=== PATIENT | female | born 1995 | race Caucasian/White ===

== ENCOUNTER 2020-05-14 20:30 | Emergency (ER) | payer OTHER, SELFPAY ==
[2020-05-14 20:43] VITALS: BP 123/80; PULSE 86; RESP 20; TEMP 37.2; O2SAT 100; BMI 22.6
[2020-05-14 20:48] LABS: Apearance,Urine Cloudy (Clear); Color,Urine Straw (Yellow); PH,Urine 5.5 (5.0-8.5); Specific Gravity, Urine >= 1.030 (1.005-1.030)
--- NOTE | 2020-05-14 20:48 | HMH.EDUTC ---
[facility] [place] Clinical Impression: UTI (urinary tract infection) Qualifiers: Urinary tract infection type: site unspecified Hematuria presence: with hematuria Qualified Code(s): N39.0 - Urinary tract infection, site not specified; R31.9 - Hematuria, unspecified Disposition: Home, Self-Care Condition on Discharge: Good Instructions: Urinary Tract Infection, DI for Urinary Tract Infection (UTI) Additional Instructions: Drink plenty of fluids. Take tylenol or ibuprofen for pain or fever. Take the medications as directed. Follow up with your regular doctor. GO TO THE ER FOR ANY WORSENING SYMPTOMS The pyridium will make your urine turn orange, this is an expected side effect. It will stain your clothes if it comes into contact with them. Prescriptions: Ondansetron [Zofran 4mg ODT] 4 mg PO Q8HP PRN #10 tab.rapdis PRN Reason: Nausea Transmission Status: Pending to Clinic Pharmacy [facility] Ciprofloxacin HCl [Cipro 500mg Tab] 500 mg PO BID 7 Days #14 tab Transmission Status: Pending to Clinic [facility] Phenazopyridine HCl [Pyridium 200mg Tablet] 200 pow PO TID #6 tab Transmission Status: Pending to Clinic Pharm[facility] Referrals: PCP,No [Primary Care Provider] - Time of Disposition: 20:59 Medical Decision Making - Medical Records Medical records reviewed: No: I reviewed the patient's medical records. - Primo Inquiry Pt receiving controlled substance: No Vital Signs: 05/14/20 20:43 Temperature 99.0 F Temperature Source Oral Pulse Rate [Right Brachial] 86 Respiratory Rate 20 Blood Pressure [Right Arm] 123/80 Blood Pressure Mean [Right Arm] 94 Blood Pressure Source [Right Arm] Automatic Cuff Blood Pressure Position [Right Arm] Sitting 02 Sat by Pulse Oximetry 100 Oxygen Delivery Method Room Air - Lab Data Lab results reviewed: Yes: I reviewed the patient's lab results. Orders (Tests/Meds): ORDERS Category Date Time Status Urine Culture Stat Micro 05/14/20 20:40 Ordered [facility] [place] HPI - General Stated complaint: Possible UTI Time Seen by Provider: 05/14/20 20:49 Mode of Arrival: Ambulatory Source of Information: Patient Limitations: No Limitations Description of Symptoms (Recalled from Triage Doc. by RN): PATIENT C/O BURNING WITH URINATION AND CLOUDY URINE THAT STARTED TODAY HEENT Symptoms (Recalled from RN notes): No Resp Symptoms (Recalled from RN notes): No Skin Symptoms (Recalled from RN notes): No MS Symptoms (Recalled from RN notes): No Functional Status (Recalled from RN notes): WNL - History of Present Illness Provider Complaint: She c/o burning while urinating and low back pain since earlier today. She has a history of having kind of frequent uti's. She is currently on her period. - Related Data Previous Rx's Medication Instructions Recorded Ciprofloxacin HCl [Cipro 500mg 500 mg PO BID 7 Days #14 tab 05/14/20 Tab] Ondansetron [Zofran 4mg ODT] 4 mg PO Q8HP PRN #10 tab.rapdis 05/14/20 Phenazopyridine HCl [Pyridium 200 pow PO TID #6 tab 05/14/20 200mg Tablet] Allergies Allergy/AdvReac Type Severity Reaction Status Date / Time Sulfa (Sulfonamide Allergy Verified 05/14/20 20:47 Antibiotics) - Worker's Comp Is this a Worker's Comp case?: No [facility] History - Hepatitis A Screen Drug use history?: No High risk sexual behaviors?: No History of sexually transmitted infection?: No Currently employed?: No Childcare worker?: No Do you have indoor plumbing?: Yes Do you have electricity?: Yes Attestation statement:: This patient has been screened for Hepatitis A risk factors. I have reviewed the patient's past medical history: Yes - Social History Alcohol Intake: never Occupational Status: other ROS Obtained: Yes All systems reviewed & no additional complaints - Constitutional Constitutional: Reports chills, Denies fever(s), Reports poor appetite, Reports malaise - Eyes Eyes: Denies eye discharge - ENT E
[2020-05-14 20:49] LABS: Bilirubin,Urine Negative (Negative); Blood, Urine 3+ (Negative); Glucose,Urine (UA) Negative (Negative); Ketones,Urine Negative (Negative); Protein,Urine 3+ (Negative); Urobilinogen,Urine 0.2 EU/dl (0.2)
[2020-05-14 20:50] LABS: UTC Leukocyte Esterase,Urine Trace (Negative); UTC Nitrate,Urine Negative (Negative)
[2020-05-14 21:03] VITALS: BP 123/80; PULSE 86; RESP 20; TEMP 37.2; O2SAT 100
== END 2020-05-14 21:05 | disposition home or self-care (01) ==
PROVIDERS: Emergency Provider Nurse Practitioner Family
DX: N30.01 Acute cystitis with hematuria (principal); Z88.2 Allergy status to sulfonamides
CPT/HCPCS: 81003; 87086; 87088; 87186; 99201

== ENCOUNTER 2020-11-22 18:02 | Emergency (ER) | payer OTHER, SELFPAY ==
[2020-11-22 18:24] LABS: Apearance,Urine Clear (Clear); Color,Urine Yellow (Yellow); Glucose,Urine (UA) Negative (Negative); Ketones,Urine Negative (Negative); PH,Urine 7.5 (5.0-8.5); Protein,Urine 2+ (Negative)
[2020-11-22 18:25] LABS: Bilirubin,Urine Negative (Negative); Blood, Urine 2+ (Negative); UTC Leukocyte Esterase,Urine 2+ (Negative); UTC Nitrate,Urine Positive (Negative); Urobilinogen,Urine 2 EU/dl (0.2)
[2020-11-22 18:32] VITALS: BP 117/82; PULSE 55; RESP 14; TEMP 37.1; O2SAT 99; BMI 20.3
--- NOTE | 2020-11-22 18:36 | HMH.EDUTC ---
[facility] [place] Clinical Impression: UTI (urinary tract infection) Qualifiers: Urinary tract infection type: site unspecified Hematuria presence: with hematuria Qualified Code(s): N39.0 - Urinary tract infection, site not specified Disposition: Home, Self-Care Condition on Discharge: Good Instructions: Urinary Tract Infection Additional Instructions: Drink plenty of fluids. Take tylenol or ibuprofen for pain or fever. Take the medications as directed. Follow up with your regular doctor. GO TO THE ER FOR ANY WORSENING SYMPTOMS The pyridium will make your urine turn orange, this is an expected side effect. It will stain your clothes if it comes into contact with them. Prescriptions: Ciprofloxacin HCl [Cipro 500mg Tab] 500 mg PO BID #14 tab Transmission Status: Received by [facility] #[id number] Fluconazole [Diflucan 150mg tab] 150 mg PO ONCE #1 tab Transmission Status: Received by [facility] #[id number] Phenazopyridine HCl [Pyridium 200mg Tablet] 200 pow PO TID #6 tab Transmission Status: Received by [facility] #[id number] Referrals: PCP,No [Primary Care Provider] - Forms: Work/School Release Time of Disposition: 18:44 Medical Decision Making - Medical Records Medical records reviewed: No: I reviewed the patient's medical records. - Primo Inquiry Pt receiving controlled substance: No Vital Signs: 11/22/20 18:32 11/22/20 19:11 Temperature 98.7 F 98 F Temperature Source Tympanic Pulse Rate 0 L Pulse Rate [Right] 55 L Respiratory Rate 14 17 Blood Pressure 000/00 L Blood Pressure [Right Arm] 117/82 Blood Pressure Mean [Right Arm] 93 Blood Pressure Source [Right Arm] Automatic Cuff Blood Pressure Position [Right Arm] Sitting 02 Sat by Pulse Oximetry 99 - Lab Data Lab results reviewed: Yes: I reviewed the patient's lab results. Lab Results 11/22/20 18:11: Urine Color Yellow, Urine Appearance Clear, Urine pH 7.5, Ur Specific [place] 1.020, Urine Protein 2+, Urine Glucose (UA) Negative, Urine Ketones Negative, Urine Blood 2+, Urine Nitrate Positive A, Urine Bilirubin Negative, Urine Urobilinogen 2, Ur Leukocyte Esterase 2+ A Orders (Tests/Meds): ED MEDICATIONS Discontinued Medications Generic Name Dose Route Start Last Admin Trade Name Nasim PRN Reason Stop Dose Admin Levofloxacin 500 mg 11/22/20 18:42 11/22/20 18:53 Levofloxacin 500mg Tab PO 11/22/20 18:43 500 mg ONCE ONE Administration Protocol ORDERS Category Date Time Status Urine Culture Routine Micro 11/22/20 18:15 Received [facility] [place] - General Stated complaint: UTI Time Seen by Provider: 11/22/20 18:36 Mode of Arrival: Ambulatory Source of Information: Patient Limitations: No Limitations Description of Symptoms (Recalled from Triage Doc. by RN): She states that she has had dysuria and low back pain since yesterday. HEENT Symptoms (Recalled from RN notes): No Resp Symptoms (Recalled from RN notes): No Skin Symptoms (Recalled from RN notes): No MS Symptoms (Recalled from RN notes): Yes (R elbow/forearm pain) Functional Status (Recalled from RN notes): na - History of Present Illness Provider Complaint: She states that she has had dysuria and low back pain since yesterday. - Related Data Previous Rx's Medication Instructions Recorded Ciprofloxacin HCl [Cipro 500mg 500 mg PO BID 7 Days #14 tab 05/14/20 Tab] Ondansetron [Zofran 4mg ODT] 4 mg PO Q8HP PRN #10 tab.rapdis 05/14/20 Phenazopyridine HCl [Pyridium 200 pow PO TID #6 tab 05/14/20 200mg Tablet] Ciprofloxacin HCl [Cipro 500mg 500 mg PO BID #14 tab 11/22/20 Tab] Fluconazole [Diflucan 150mg tab] 150 mg PO ONCE #1 tab 11/22/20 Phenazopyridine HCl [Pyridium 200 pow PO TID #6 tab 11/22/20 200mg Tablet] Allergies Allergy/AdvReac Type Severity Reaction Status Date / Time Sulfa (Sulfonamide Allergy Verified 11/22/20 19:11 Antibiotics) -
[2020-11-22 19:11] VITALS: BP 000/00; PULSE 0; RESP 17; TEMP 36.6
== END 2020-11-22 19:11 | disposition home or self-care (01) ==
PROVIDERS: Emergency Provider Nurse Practitioner Family
DX: N30.00 Acute cystitis without hematuria (principal)
CPT/HCPCS: 81003; 87086; 87088; 87186; 99202; G0463

== ENCOUNTER 2021-02-26 15:21 | Emergency (ER) | payer OTHER, SELFPAY ==
[2021-02-26 15:35] VITALS: BP 107/73; PULSE 89; RESP 19; TEMP 37; O2SAT 98; BMI 22.8
[2021-02-26 15:50] LABS: UTC Pregnancy Test, Urine Negative (Negative)
--- NOTE | 2021-02-26 16:16 | HMH.EDUTC ---
[facility] [place] Disposition Clinical Impression: Nausea vomiting and diarrhea Disposition: Home, Self-Care Condition on Discharge: Good Instructions: Diarrhea, Nausea and Vomiting-Adult, Ondansetron Additional Instructions: Drink extra fluids with and between meals. If you have difficulty drinking, try very small amounts of water or suck on ice chips. ? Avoid fruit juices, as these do not replace minerals and can actually increase diarrhea. ? Children and adults can use sports drinks to replenish electrolytes. Younger children and infants should use products formulated for children, like oral rehydration solutions. ? Eat food in small amounts and let your stomach recover. ? Get lots of rest. You may feel tired or weak. ? No greasy or fried foods for the next 24-48 hours BRAT diet Bananas Rice Apples and [place] ? Make sure to drink plenty of liquids ? Return if needed ? Straight to ER if any life threatening symptoms ? Zofran as prescribed ? You was given an outpatient order for diarrhea panel, please collect specimen and bring back to outpatient lab then call back to the [facility] or follow up with family doctor for results ? Follow up with family doctor in the next 48-72 hours if no improvement or any worsening of symptoms Prescriptions: Ondansetron [Zofran 4mg ODT] 4 mg PO TIDP PRN #10 tab PRN Reason: Nausea Transmission Status: Received by [facility] #[id number] Referrals: Provider,Referral, MD [Primary Care Provider] - As needed Forms: Work/School Release Time of Disposition: 16:40 Medical Decision Making - Primo Inquiry Pt receiving controlled substance: No Primo was queried for this patient: No Vital Signs: 02/26/21 15:35 02/26/21 16:46 Temperature 98.6 F 98.6 F Temperature Source Oral Pulse Rate 89 Pulse Rate [Right Brachial] 89 Respiratory Rate 19 19 Blood Pressure 107/73 L Blood Pressure [Right Arm] 107/73 L Blood Pressure Mean [Right Arm] 84 Blood Pressure Source [Right Arm] Automatic Cuff Blood Pressure Position [Right Arm] Sitting 02 Sat by Pulse Oximetry 98 Oxygen Delivery Method Room Air - Lab Data Lab results reviewed: Yes: I reviewed the patient's lab results. Lab Results 02/26/21 15:38: Tst Clinic Negative Orders (Tests/Meds): ED MEDICATIONS Discontinued Medications Generic Name Dose Route Start Last Admin Trade Name Freq PRN Reason Stop Dose Admin Ondansetron HCl 4 mg 02/26/21 16:24 02/26/21 16:29 Ondansetron 4mg Odt SL 02/26/21 16:25 4 mg ONCE ONE Administration [facility] [place] HPI - General Stated complaint: V/D nausea Time Seen by Provider: 02/26/21 16:22 Mode of Arrival: Ambulatory Source of Information: Patient Limitations: No Limitations Description of Symptoms (Recalled from Triage Doc. by RN): PATIENT C/O VOMITING, DIARRHEA, AND NAUSEA SINCE SATURDAY HEENT Symptoms (Recalled from RN notes): No Resp Symptoms (Recalled from RN notes): No Skin Symptoms (Recalled from RN notes): No MS Symptoms (Recalled from RN notes): No Functional Status (Recalled from RN notes): WNL - History of Present Illness Provider Complaint: Patient state that she started having nausea and vomiting on State that she has continued to have it throughout the weekend States that she has been drinking ok but not been eating well States that her stomach feels tore up States that when she tries to eat something it makes her sick and she vomits - Related Data Previous Rx's Medication Instructions Recorded Ondansetron [Zofran 4mg ODT] 4 mg PO TIDP PRN #10 tab 02/26/21 Allergies Allergy/AdvReac Type Severity Reaction Status Date / Time Sulfa (Sulfonamide Allergy Verified 11/22/20 19:11 Antibiotics) - Worker's Comp Is this a Worker's Comp case?: No [facility] History - Hepatitis A Screen Drug use history?: No High risk sexual behaviors?: No History of sexually transmitted infection?: No Currently employed?: No Childcare worker?: No
[2021-02-26 16:46] VITALS: BP 107/73; PULSE 89; RESP 19; TEMP 37; O2SAT 98
== END 2021-02-26 16:51 | disposition home or self-care (01) ==
PROVIDERS: Emergency Provider Nurse Practitioner
DX: R11.2 Nausea with vomiting, unspecified (principal); R19.7 Diarrhea, unspecified
CPT/HCPCS: 81025; 99202; G0463

== ENCOUNTER → 2021-02-26 21:52 | Outpatient (CLI) | payer OTHER, SELFPAY ==
[2021-02-26 22:08] LABS: Adenovirus F 40/41, stool Not Detected (NotDetected); Astrovirus Not Detected (NotDetected); Campylobacter Not Detected (NotDetected); Clostridium Difficile A/B, PCR Not Detected (NotDetected); Cryptosporidium Not Detected (NotDetected); Cyclospora Cayetanesis Not Detected (NotDetected); Entamoeba histolytica Not Detected (NotDetected); Enteroaggregative E coli Not Detected (NotDetected); Enteropathogenic E coli Not Detected (NotDetected); Enterotoxigenic E coli Not Detected (NotDetected); Giardia lamblia Not Detected (NotDetected); Norovirus Not Detected (NotDetected); Plesimonas Shigalloides, PCR Not Detected (NotDetected); Rotavirus A Not Detected (NotDetected); Salmonella, PCR Not Detected (NotDetected); Shiga-like toxin E coli Not Detected (NotDetected); Shigella Enterovasive E coli Not Detected (NotDetected); Vibrio Cholerae Not Detected (NotDetected); Vibrio, PCR Not Detected (NotDetected); Yersinia Entercolitica, PCR Not Detected (NotDetected)
[2021-02-26 23:43] LABS: Sapovirus Detected (NotDetected)
== END ==
PROVIDERS: Visit Provider Nurse Practitioner
DX: R19.7 Diarrhea, unspecified (principal); A08.4 Viral intestinal infection, unspecified
CPT/HCPCS: 87507

== ENCOUNTER → 2021-05-05 14:12 | Outpatient (CLI) | payer OTHER, SELFPAY ==
[2021-05-05 14:42] LABS: Coronavirus 19, PCR Not Detected (NotDetected); Influenza A, PCR Not Detected (NotDetected); Influenza B, PCR Not Detected (NotDetected)
== END ==
PROVIDERS: Visit Provider Nurse Practitioner Family
DX: Z20.822 Contact with and (suspected) exposure to COVID-19 (principal); R50.9 Fever, unspecified
CPT/HCPCS: U0003

== ENCOUNTER → 2021-05-09 14:38 | Outpatient (CLI) | payer OTHER, SELFPAY | PROVIDERS: Visit Provider Nurse Practitioner Family | DX: Z20.822 Contact with and (suspected) exposure to COVID-19 (principal); U07.1 COVID-19 | CPT/HCPCS: U0003 ==

== ENCOUNTER → 2021-08-01 16:48 | Outpatient (CLI) | payer OTHER, SELFPAY | PROVIDERS: Visit Provider Nurse Practitioner Family | DX: R30.0 Dysuria (principal); B96.20 Unspecified Escherichia coli [E. coli] as the cause of diseases classified elsewhere | CPT/HCPCS: 87086; 87088; 87186 ==

== ENCOUNTER → 2022-02-20 12:45 | Outpatient (POV) | payer OTHER, SELFPAY | PROVIDERS: Visit Provider Dermatology | DX: Z00.00 Encounter for general adult medical examination without abnormal findings (principal) ==

== ENCOUNTER → 2022-03-07 10:50 | Outpatient (CLI) | payer OTHER, SELFPAY ==
[2022-03-07 11:23] LABS: Basophils # 0.1 K/mm3 (0-0.2); Basophils % 1.3 % (0.1-2.0); Eosinophils # 0.1 K/mm3 (0.0-0.4); Hematocrit 43.5 % (37.0-47.0); Lymphocytes # 1.1 K/mm3 (0.7-4.5); Lymphocytes % 19.5 % (10-50); Mean Corpuscular Hemoglobin 27.6 pg (27.0-31.2); Mean Corpuscular Volume 92.3 fl (81-99); Mean Platelet Volume 7.2 fl (7.4-10.4); Monocytes # 0.2 K/mm3 (0.1-1.0); Monocytes % 3.8 % (1.7-9.3); Neutrophils # 4.3 K/mm3 (1.8-7.8); Neutrophils % 74.4 % (37.0-80.0); Platelet Count 260 K/mm3 (142-424); Red Blood Count 4.72 M/mm3 (4.20-5.40); Red Cell Distribution Width 12.8 % (11.5-17.5); White Blood Count 5.8 K/mm3 (4.8-10.8)
[2022-03-08 08:19] LABS: HIV Screen 4th Generation wRfx Non Reactive (Non Reactive); Hepatitis B Surface Antigen Negative (Negative); Hepatitis C Antibody <0.1 s/co ratio (0.0-0.9); Rubella Antibodies, IgG 6.42 index (Immune >0.99)
[2022-03-08 11:56] LABS: Rapid Plasma Reagin Ab Titer Non Reactive (NonRea<1:1)
== END ==
PROVIDERS: PCP Nurse Practitioner Family; Visit Provider Obstetrics & Gynecology
DX: Z34.90 Encounter for supervision of normal pregnancy, unspecified, unspecified trimester (principal)
CPT/HCPCS: 36415; 85025; 86592; 86703; 86762; 86850; 87340; 87380; G0432

== ENCOUNTER → 2022-06-06 12:57 | Outpatient (CLI) | payer OTHER, SELFPAY ==
--- NOTE | 2022-06-06 12:57 | US_ITS ---
FINAL REPORT CLINICAL HISTORY: 20 week anatomy scan FINDINGS: There is a single live intrauterine gestation. Presentation is cephalic. The cervix is closed and measures 0.7 cm. Placenta is anterior, grade 1. movement is noted. Rate is detected at 156 beats per minute. Three-vessel cord with satisfactory umbilical cord insertion. Four-chamber heart is noted. ABDOMEN: Both kidneys are unremarkable. Stomach is unremarkable. SPINE: No anomalies identified. AMNIOTIC FLUID: Appropriate amount. MEASUREMENTS: ULTRASOUND AGE: 20 weeks 4 days. GESTATION AGE: 20 weeks 4 days. ESTIMATED WEIGHT: 353 g GROWTH PERCENTILE: 37 % BPD: 5.02 cm corresponding to 21 weeks 2 days. OFD: 6.23 cm corresponding to 21 weeks 0 days. HC: 17.77 cm corresponding to 20 weeks 2 days. AC: 14.73 cm corresponding to 20 weeks 1 day. FL: 3.46 cm corresponding to 21 weeks 0 days. CEREBELLUM: 2.08 cm corresponding to 21 weeks 1 day. HUMERUS: 2.35 cm corresponding to 21 weeks 3 days. HC/AC: 1.21 CI: 81% FL/BPD: 69% FL/AC: 23% IMPRESSION: Single living IUP with an ultrasound age of 20 weeks 5 days. Reviewed, Interpreted and Dictated by Himanshu Thakkar III, MD Transcribed by Collette Brunson Authenticated and [facility]
== END ==
PROVIDERS: PCP Nurse Practitioner Family; Visit Provider Obstetrics & Gynecology
DX: Z34.90 Encounter for supervision of normal pregnancy, unspecified, unspecified trimester (principal); Z3A.20 20 weeks gestation of pregnancy
CPT/HCPCS: 76811

== ENCOUNTER → 2022-07-11 09:07 | Outpatient (CLI) | payer OTHER, SELFPAY ==
[2022-07-11 09:45] LABS: Glucose,Fasting 75 mg/dl (74-100)
[2022-07-11 09:52] LABS: Basophils % 0.6 % (0.1-2.0); Eosinophils # 0.1 K/mm3 (0.0-0.4); Eosinophils % 0.9 % (0.1-12.0); Hematocrit 38.6 % (37.0-47.0); Hemoglobin 12.5 g/dL (12.2-16.2); Lymphocytes # 1.4 K/mm3 (0.7-4.5); Lymphocytes % 23.1 % (10-50); Mean Corpuscular HGB Conc 32.3 g/dL (31.8-35.4); Mean Corpuscular Hemoglobin 29.6 pg (27.0-31.2); Mean Corpuscular Volume 91.5 fl (81-99); Mean Platelet Volume 7.4 fl (7.4-10.4); Monocytes # 0.2 K/mm3 (0.1-1.0); Monocytes % 3.4 % (1.7-9.3); Neutrophils # 4.4 K/mm3 (1.8-7.8); Neutrophils % 71.9 % (37.0-80.0); Platelet Count 271 K/mm3 (142-424); Red Blood Count 4.21 M/mm3 (4.20-5.40); Red Cell Distribution Width 13.2 % (11.5-17.5); White Blood Count 6.1 K/mm3 (4.8-10.8)
[2022-07-11 11:28] LABS: Glucose 1 Hour 114 mg/dL (74-100)
== END ==
PROVIDERS: PCP Nurse Practitioner Family; Visit Provider Obstetrics & Gynecology
DX: Z34.90 Encounter for supervision of normal pregnancy, unspecified, unspecified trimester (principal)
CPT/HCPCS: 36415; 82951; 85025

== ENCOUNTER 2022-09-24 13:15 | Outpatient (CLI) | payer OTHER, SELFPAY ==
[2022-09-24 13:23] VITALS: BMI 34.2
[2022-09-24 13:49] LABS: Microscopic, Urine URINE MICROSCOPIC (MICROSCOPIC)
[2022-09-24 13:52] LABS: Appearance,Urine CLEAR (Clear); Bilirubin,Urine Negative (Negative); Blood, Urine Negative (Negative); Color,Urine YELLOW (Yellow); Glucose,Urine (UA) Negative (Negative); Ketones,Urine TRACE (Negative); Leukocyte Esterase,Urine Negative (Negative); Nitrate,Urine Negative (Negative); Protein,Urine TRACE (Negative); Specific Gravity, Urine 1.025 (1.005-1.030); Urobilinogen,Urine 0.2 EU/dl (0.2)
[2022-09-24 13:54] VITALS: BP 144/92; PULSE 100; RESP 17; TEMP 37.1; O2SAT 100; BMI 34.2
[2022-09-24 14:02] LABS: Fetal Membrane Rupture (Rapid) Negative (Negative)
[2022-09-24 14:04] LABS: Benzodiazepines Screen,Urine Negative ng/ml (<200)
[2022-09-24 14:05] LABS: Amphetamine/Metha Screen,Urine Negative ng/ml (<1000); Bacteria,Urine 2+ /lpf; WBC,Urine Occasional #/hpf (0-3)
[2022-09-24 14:06] LABS: Cocaine Screen,Urine Negative ng/ml (<300)
[2022-09-24 14:07] LABS: Cannabinoid Screen,Urine Negative ng/ml (<50); Methadone Screen,Urine Negative ng/ml (<300)
[2022-09-24 14:08] LABS: Opiate Screen,Urine Negative ng/ml (<300); Phencyclidine Screen,Urine Negative ng/ml (<25)
[2022-09-24 14:16] LABS: Barbiturates Screen,Urine Negative ng/ml (<200)
== END 2022-09-24 14:15 | disposition home or self-care (01) ==
LOC: OBOUT 13:17 → OB 13:17
PROVIDERS: PCP Nurse Practitioner Family; Visit Provider Obstetrics & Gynecology
DX: O26.893 Other specified pregnancy related conditions, third trimester (principal); Z3A.36 36 weeks gestation of pregnancy
CPT/HCPCS: 59025; 80305; 81001; 84112; 87086; G0463

== ENCOUNTER 2022-09-27 16:21 | Outpatient (CLI) | payer OTHER, SELFPAY ==
[2022-09-27 16:31] VITALS: BMI 34.5
--- NOTE | 2022-09-27 16:32 | US_ITS ---
PROCEDURE INFORMATION: Exam: US Biophysical Profile Without Non-Stress Test Exam date and time: 09/27/2022 5:13 PM Age: 27 years old Clinical indication: status abnormalities: ; Abnormal heart rate; Single gestation; Third trimester (=28 weeks 0 days); ; Patient HX: tachycardia; Additional info: High heart rate TECHNIQUE: Imaging protocol: US biophysical profile without non-stress testing. COMPARISON: US OB /MATERNAL DETAIL 06/06/2022 1:02 PM FINDINGS: BIOPHYSICAL PROFILE: breathing movement (BPP): 2 out of 2. body movement (BPP): 2 out of 2. tone (BPP): 2 out of 2. Amniotic fluid (BPP): 2 out of 2. IMPRESSION: Biophysical profile score is 8 out of 8.
[2022-09-27 16:37] VITALS: BP 120/75; PULSE 97; RESP 20; TEMP 36.9; O2SAT 99; BMI 34.2
== END 2022-09-27 18:00 | disposition home or self-care (01) ==
LOC: OBOUT 16:22 → OB 16:24
PROVIDERS: PCP Physician Assistant; Visit Provider Obstetrics & Gynecology
DX: O26.893 Other specified pregnancy related conditions, third trimester (principal); Z3A.36 36 weeks gestation of pregnancy
CPT/HCPCS: 59025; 76811; 76819; 76820; 96365; G0463

== ENCOUNTER → 2022-09-27 17:24 | Outpatient (CLI) | payer OTHER, SELFPAY | PROVIDERS: Visit Provider Obstetrics & Gynecology | DX: Z34.90 Encounter for supervision of normal pregnancy, unspecified, unspecified trimester (principal) | CPT/HCPCS: 86403 ==

== ENCOUNTER 2022-10-17 16:15 | Inpatient (IN) | payer OTHER, SELFPAY ==
[2022-10-17 16:25] VITALS: BMI 35.0
--- NOTE | 2022-10-17 16:56 | EXP.OB.APHP ---
OB - H&P: HPI Antepartum History of Present Illness Chief complaint: Elective induction of labor History of present illness: Mrs Gale Mcclain is a 27 yo at 39 weeks 4 days who presents to [facility] for scheduled elective induction of labor. She admits to pelvic pressure and back pain. Baby is very active. Denies leakage of fluid and vaginal bleeding. No headaches, vision changes or swelling. History of Present Criteria for establishing EDC:: based on 1st trimester US only care: good care Ultrasounds: normal mid trimester US Obstetrical complications: none Medical complications: none Labs Blood type: O (+) positive Rubella: immune RPR/VDRL: nonreactive GBS status: negative HBsAG: negative PFSH PFS Disclaimer: The information contained in this section may have been updated after the patient was seen, as this information can be updated by other users. Medical History (Updated 10/17/22 @ 17:08 by Eli Nuñez DO) with 39 completed weeks gestation Surgical History History of colonoscopy History of tonsillectomy Family History Other Anemia Cancer Coronary artery disease Heart attack Hyperlipidemia Hypertension Thyroid disorder Social History Smoking Status: Never smoker alcohol intake: never current occupational status: employed Travel in the last 8 weeks: None Review of Systems Review of Systems Review of systems:: pertinent systems reviewed and negative unless documented below *Genitourinary Comments: + pelvic pressure *Musculoskeletal Musculoskeletal: Reports back pain Meds Home Medications and Allergies Home Medications Medication Instructions Recorded Confirmed Type prenat.vits,ryan,zar-lvwn-rhwmr 1 tab PO DAILY 03/07/22 10/17/22 History ondansetron 4 mg disintegrating 4 mg PO Q8H PRN nausea and 04/04/22 10/17/22 Rx tablet vomiting #20 tabs doxylamine succinate 25 mg tablet 12.5 mg PO HS #30 tabs 09/27/22 10/17/22 Rx (Unisom (doxylamine)) pantoprazole 40 mg tablet,delayed 40 mg PO DAILY #30 tabs 01/26/23 02/15/23 Rx release (Protonix) New Prescriptions to Start Prescriptions: Allergies Allergy/AdvReac Type Severity Reaction Status Date / Time Sulfa (Sulfonamide Allergy Verified 10/17/22 09:19 Antibiotics) OB - H&P: Exam Constitutional no acute distress and cooperative Routine HEENT Exam Head: Present normocephalic and atraumatic Eye: Absent conjunctivae pink ENT: Present mucous membranes moist and dentition normal Routine Neck Exam Present full ROM Routine Respiratory Exam Present CTA bilaterally and normal respiratory effort Routine Cardiovascular Exam Present RRR Routine Abdominal Exam Present soft (gravid); Absent tenderness Routine Rectal Exam Patient deferred: visual exam Routine Exam Patient deferred: external exam Routine Extremities Exam Present edema (+3 bilateral lower extremity edema); Absent calf tenderness Routine Neurological Exam Present alert, oriented X3 and moving all extremities Routine Psychiatric Exam Present normal affect and cooperative Detailed Labor and Delivery Exam Dilation (cm): 1 Effacement (%): 60 Cervix position: posterior station: -2 Consistency: soft Membranes: intact Baseline heart rate: 135 monitor accelerations: Present monitor decelerations: None salvage determiner variability: Moderate (11-25) OB - A/P Antepartum (1) with 39 completed weeks gestation: Status: Acute (2) GERD (gastroesophageal reflux disease): Status: Chronic Additional Plan Planning to breastfeed?: Yes Additional Information:: Admit to L&D for elective induction of labor Cytotec 50 mcg q 6 hours x 2 doses followed by Pitocin for induction GBS negative Close monitoring
[2022-10-17 17:35] VITALS: BP 124/77; RESP 18; TEMP 37.1; O2SAT 100; BMI 35.1
[2022-10-17 17:53] LABS: Basophils % 0.4 % (0.1-2.0); Eosinophils # 0.1 K/mm3 (0.0-0.4); Eosinophils % 0.8 % (0.1-12.0); Hemoglobin 10.9 g/dL (12.2-16.2); Lymphocytes # 1.6 K/mm3 (0.7-4.5); Lymphocytes % 16.1 % (10-50); Mean Corpuscular HGB Conc 32.9 g/dL (31.8-35.4); Mean Corpuscular Volume 85.1 fl (81-99); Mean Platelet Volume 8.4 fl (7.4-10.4); Monocytes # 0.5 K/mm3 (0.1-1.0); Monocytes % 4.7 % (1.7-9.3); Neutrophils # 7.9 K/mm3 (1.8-7.8); Neutrophils % 77.9 % (37.0-80.0); Platelet Count 328 K/mm3 (142-424); Red Blood Count 3.88 M/mm3 (4.20-5.40); Red Cell Distribution Width 13.9 % (11.5-17.5); White Blood Count 10.1 K/mm3 (4.8-10.8)
[2022-10-17 17:55] LABS: Microscopic, Urine URINE MICROSCOPIC (MICROSCOPIC)
[2022-10-17 17:57] LABS: Appearance,Urine CLEAR (Clear); Bilirubin,Urine Negative (Negative); Blood, Urine Negative (Negative); Color,Urine YELLOW (Yellow); Glucose,Urine (UA) Negative (Negative); Ketones,Urine TRACE (Negative); Leukocyte Esterase,Urine 1+ (Negative); Nitrate,Urine Negative (Negative); Protein,Urine Negative (Negative); Urobilinogen,Urine 0.2 EU/dl (0.2)
[2022-10-17 18:10] LABS: Barbiturates Screen,Urine Negative ng/ml (<200); Benzodiazepines Screen,Urine Negative ng/ml (<200)
[2022-10-17 18:11] LABS: Amphetamine/Metha Screen,Urine Negative ng/ml (<1000)
[2022-10-17 18:12] LABS: Cannabinoid Screen,Urine Negative ng/ml (<50); Methadone Screen,Urine Negative ng/ml (<300)
[2022-10-17 18:13] LABS: Cocaine Screen,Urine Negative ng/ml (<300); Opiate Screen,Urine Negative ng/ml (<300)
[2022-10-17 18:14] LABS: Bacteria,Urine 1+ /lpf; Phencyclidine Screen,Urine Negative ng/ml (<25)
[2022-10-17 18:50] LABS: Coronavirus 19, PCR Not Detected (NotDetected); Influenza A, PCR Not Detected (NotDetected); Influenza B, PCR Not Detected (NotDetected)
--- NOTE | 2022-10-18 07:13 | EXP.LABOR.NO ---
Labor Note Subjective: Date: 10/18/22 Time: 07:13 irregular contractions (every 2-4 minutes) Objective: NST:: Reactive Cervical Dilation:: 2 Effacement:: 70% Station: -2 Membranes: artificially ruptured (at 0709, clear) Fetus: Monitoring?: Yes monitoring type:: External Assessment: Labor progressing?: Yes All Active Problems (Updated 10/17/22 @ 17:08 by Eli Nuñez, ) with 39 completed weeks gestation (Acute) Screening for genetic disease carrier status (Acute) GERD (gastroesophageal reflux disease) (Chronic) (Acute) Plan: Anesthesia for epidural?: Yes Plan for ?: No Continue to monitor?: Yes
--- NOTE | 2022-10-18 08:03 | P.PN_ITS ---
[facility] Disclaimer: The information contained in this section may have been updated after the patient was seen, as this information can be updated by other users. Medical History with 39 completed weeks gestation Surgical History History of colonoscopy History of tonsillectomy Family History Other Anemia Cancer Coronary artery disease Heart attack Hyperlipidemia Hypertension Thyroid disorder Social History (Updated 10/17/22 @ 18:37 by Aida Pillai RN) Smoking Status: Never smoker alcohol intake: never substance use type: denies use current occupational status: employed Travel in the last 8 weeks: None [facility] Anesthesia Checklist Patient Identification Patient Identification: Arm Band Structural Data Admitted From: Inpatient Planned Operative Procedure/s: Labor Epidural Consent for Planned Operative Procedure(s) Verified: Yes Verified Documents: Surgical Consent and History and Physical NPO Status Verified Time NPO: 00:00 Additional verifications Anesthesia Reactions: No Airway Assessment C-Spine Mobility Assessed: Yes TMJ Mobility Assessed: Yes Neurological Assessment Level of Consciousness: Alert Anesthesia Plan Anesthesia Risk discussed: Yes Anesthesia Plan: Verified ASA Class: II Anesthesia Type: Epidural
--- NOTE | 2022-10-18 22:05 | P.PCN_ITS ---
Delivery Note Delivery Date:: 10/18/22 Delivery Time:: 21:28 Anesthesia Type: Epidural Was labor medically induced?: No Induction method: per pitocin protocol Gestational age (weeks): 39 delivered prior to 39 weeks?: No Infant Gender: Female at 1 minute: 7 at 5 minutes: 9 LAC or MLE?: LAC Delivery Procedure:: Mom complete with epidural. Pushed for approximately 1 hour 34 minutes. Head delivered spontaneously over intact perineum in SAMANTHA position. Nuchal cord x 1 easily reduced. Anterior shoulder delivered with gentle downward pressure. Posterior shoulder and remainder of body delivered spontaneously. Baby placed on maternal abdomen, mouth and nares bulb suctioned, warmed/dried and stimulated. Delayed cord clamping was performed for 60 seconds. Cord was clamped and cut. Cord blood was obtained. Placenta delivered spontaneously and intact. Left v aginal wall, left labial and 2nd degree perineal laceration repaired with 3-0 Vicryl. Hemostasis was noted. Mom and baby were skin to skin and doing well after delivery. Live female baby (baby's name is Medina) APGARs 7, 9 EBL 600 mL Laceration:: vaginal and labial Placental Delivery Description: Spontaneous
[2022-10-19 07:13] LABS: Basophils # 0.1 K/mm3 (0-0.2); Basophils % 0.3 % (0.1-2.0); Eosinophils % 0.1 % (0.1-12.0); Hematocrit 28.9 % (37.0-47.0); Hemoglobin 9.6 g/dL (12.2-16.2); Lymphocytes # 1.6 K/mm3 (0.7-4.5); Lymphocytes % 7.7 % (10-50); Mean Corpuscular HGB Conc 33.3 g/dL (31.8-35.4); Mean Corpuscular Hemoglobin 28.1 pg (27.0-31.2); Mean Corpuscular Volume 84.5 fl (81-99); Mean Platelet Volume 7.6 fl (7.4-10.4); Monocytes # 0.9 K/mm3 (0.1-1.0); Monocytes % 4.1 % (1.7-9.3); Neutrophils # 18.5 K/mm3 (1.8-7.8); Neutrophils % 87.9 % (37.0-80.0); Platelet Count 319 K/mm3 (142-424); Red Blood Count 3.42 M/mm3 (4.20-5.40); Red Cell Distribution Width 14.3 % (11.5-17.5); White Blood Count 21.1 K/mm3 (4.8-10.8)
[2022-10-19 07:16] LABS: MANUAL DIFFERENTIAL MANUAL DIFFERENTIAL (MANUAL DIFF)
[2022-10-19 08:14] LABS: Lymphocytes % 6 % (10-50); Monocytes % 2 % (2-9); Neutrophils % 92 % (42-76); Total Cells Counted 100
[2022-10-19 08:15] LABS: Platelet Estimate Normal; RBC Morphology Normal
[2022-10-19 09:00] VITALS: BP 119/64; PULSE 106; RESP 18; TEMP 36.8; O2SAT 98
--- NOTE | 2022-10-19 09:44 | EXP.ACUTE.PN ---
Subjective *Date: 10/19/22 *Time: 09:44 Interval history: PPD # 1 s/p She is feeling well. Pain controlled. She is breast and formula feeding. Appropriate lochia. Tolerating regular diet. Voiding without difficulty and passing flatus. She has had a BM since delivery. Denies headaches, dizziness. No fever/chills, chest pain or shortness of breath. Medical Exam Vital signs and Labs for Last 24 Hours: Laboratory Results - last 24 hr 10/17/22 17:00: Crossmatch (AHG) See Detail 10/19/22 06:20: WBC 21.1 H* D, RBC 3.42 L, Hgb 9.6 L, Hct 28.9 L, MCV 84.5, MCH 28.1, MCHC 33.3, RDW 14.3, Plt Count 319, MPV 7.6, Neut % (Auto) 87.9 H, Lymph % (Auto) 7.7 L, [place] % (Auto) 4.1, Eos % (Auto) 0.1, Baso % (Auto) 0.3, Neut # (Auto) 18.5 H, Lymph # (Auto) 1.6, [place] # (Auto) 0.9, Eos # (Auto) 0.0, Baso # (Auto) 0.1, Total Counted 100, Neutrophils % (Manual) 92 H, Lymphocytes % (Manual) 6 L, Monocytes % (Manual) 2, Platelet Estimate Normal, RBC Morphology Normal I & O for Labs for Last 24 Hours: Intake & Output 10/16/22 10/17/22 10/18/22 10/19/22 23:59 23:59 23:59 23:59 Weight 197 lb 15.99 oz Microbiology Reports for the Last 24 Hours: Microbiology 10/17/22 16:45 Urine,Clean Catch Urine Culture - Preliminary NO GROWTH AFTER 24 HOURS Head: Present atraumatic and normocephalic ENT: Present mucous membranes moist Neck: Present normal inspection and full ROM Respiratory: Present CTA bilaterally and normal respiratory effort Cardiac: Present Reg Rate and Rhythm GI: Present soft; Absent distention or tenderness Comments:: Uterine fundus firm and below umbilicus Rectal (female): Present deferred (female): Present deferred Extremities: Present full ROM and edema (+1 bilateral pedal edema); Absent calf tenderness Neuro: Present alert, awake, oriented x 3 and moves all extremities Assessment and Plan *Assessment and plan (1) with 39 completed weeks gestation: Status: Acute Category: Medical Code(s): Z3A.39 - 39 weeks gestation of (2) hemorrhage: Problem Comment: Uterine massage, straight cath of bladder, Pitocin, IM Methergine 0.2 mg x 1 dose, Cytotec 1000 mcg rectally x 1 dose Status: Acute Category: Medical Code(s): O72.1 - Other immediate hemorrhage (3) depression: Status: Acute Category: Medical Code(s): F53.0 - depression (4) Leukocytosis, unspecified: Status: Acute Category: Medical Code(s): D72.829 - Elevated white blood cell count, unspecified Plan Continue routine care Encouraged increased ambulation Venofer 200 mg IV x 1 dose Sertraline 25 mg PO daily Will repeat CBC at 1600 today UA/ urine culture Plan d/c home PPD # 2
[2022-10-19 16:07] LABS: Microscopic, Urine URINE MICROSCOPIC (MICROSCOPIC)
[2022-10-19 16:08] LABS: Basophils # 0.1 K/mm3 (0-0.2); Basophils % 0.4 % (0.1-2.0); Eosinophils # 0.1 K/mm3 (0.0-0.4); Eosinophils % 0.5 % (0.1-12.0); Hematocrit 28.2 % (37.0-47.0); Hemoglobin 9.3 g/dL (12.2-16.2); Lymphocytes # 2.3 K/mm3 (0.7-4.5); Lymphocytes % 11.7 % (10-50); Mean Corpuscular Hemoglobin 28.3 pg (27.0-31.2); Mean Corpuscular Volume 85.9 fl (81-99); Mean Platelet Volume 8.3 fl (7.4-10.4); Monocytes # 0.8 K/mm3 (0.1-1.0); Monocytes % 4.3 % (1.7-9.3); Neutrophils # 16.1 K/mm3 (1.8-7.8); Neutrophils % 83.1 % (37.0-80.0); Platelet Count 342 K/mm3 (142-424); Red Blood Count 3.28 M/mm3 (4.20-5.40); Red Cell Distribution Width 14.4 % (11.5-17.5); White Blood Count 19.4 K/mm3 (4.8-10.8)
[2022-10-19 16:09] LABS: Appearance,Urine SL CLOUDY (Clear); Bilirubin,Urine Negative (Negative); Blood, Urine 3+ (Negative); Color,Urine YELLOW (Yellow); Glucose,Urine (UA) Negative (Negative); Ketones,Urine Negative (Negative); Leukocyte Esterase,Urine 1+ (Negative); Nitrate,Urine Negative (Negative); Protein,Urine Negative (Negative); Specific Gravity, Urine 1.015 (1.005-1.030); Urobilinogen,Urine 0.2 EU/dl (0.2)
[2022-10-19 16:32] LABS: Bacteria,Urine 4+ /lpf; RBC,Urine 20-50 #/hpf (0-3); Squamous Epithelial Cell,Urine Occasional #/hpf (0-5)
[2022-10-19 16:37] LABS: MANUAL DIFFERENTIAL MANUAL DIFFERENTIAL (MANUAL DIFF)
[2022-10-19 17:25] LABS: Lymphocytes % 17 % (10-50); Monocytes % 2 % (2-9); Neutrophils % 81 % (42-76); Platelet Estimate Normal; RBC Morphology Normal; Total Cells Counted 100
[2022-10-19 20:26] VITALS: BP 121/73; PULSE 91; RESP 18; TEMP 36.6; O2SAT 98
[2022-10-20 04:43] VITALS: BP 111/57; PULSE 99; RESP 17; TEMP 36.7; O2SAT 98
[2022-10-20 09:04] VITALS: BP 105/50; PULSE 89; RESP 18; TEMP 36.8; O2SAT 98
--- NOTE | 2022-10-20 13:37 | EXP.DC.SUM ---
General Admission date:: 10/17/22 Discharge date: 10/20/22 HPI HPI HPI: Admission with IOL 10/18/22, per admission H&P Hospital Course Hospital Course Hospital Course: Delivery complicated by PPH and she was treated with cytotec Lochia has been appropriate since that time and Hgb appropriate (10.9 at admission and 9.3 on PPD #1) Elevated WBC on PPD #1, slightly higher than expected for labor as etiology Treated with Rocephin IV based on UA; urine culture preliminary gram negative rods but final culture/ID pending at time of discharge She is feeling well and denies any signs of infection She had some concerns about depression and was started on Zoloft 25mg on PPD #1 She is discharged home on PPD #2 in stable condition She has been given appropriate precautions to watch for regarding abnormal bleeding, signs of infection, depression and preeclampsia She will f/u in 1-[address] Nuñez Exam Data for Last 24 hours Vital signs and Labs for Last 24 Hours: Temp Pulse Resp BP Pulse Ox 98.2 F 89 18 105/50 L 98 10/20/22 09:04 10/20/22 09:04 10/20/22 09:04 10/20/22 09:04 10/20/22 09:04 Laboratory Results - last 24 hr 10/17/22 17:00: Blood Type O Positive, Antibody Screen Negative, Crossmatch (AHG) See Detail 10/19/22 15:55: Urine Color Yellow, Urine Appearance Sl cloudy, Urine pH 6.0, Ur Specific Golden 1.015, Urine Protein Negative, Urine Glucose (UA) Negative, Urine Ketones Negative, Urine Blood 3+, Urine Nitrate Negative, Urine Bilirubin Negative, Urine Urobilinogen 0.2, Ur Leukocyte Esterase 1+ A, Urine RBC 20-50, Urine WBC 5-10, Ur Squamous Epith Cells Occasional, Urine Bacteria 4+ 10/19/22 16:00: WBC 19.4 H, RBC 3.28 L, Hgb 9.3 L, Hct 28.2 L, MCV 85.9, MCH 28.3, MCHC 33.0, RDW 14.4, Plt Count 342, MPV 8.3, Neut % (Auto) 83.1 H, Lymph % (Auto) 11.7, Caldwell % (Auto) 4.3, Eos % (Auto) 0.5, Baso % (Auto) 0.4, Neut # (Auto) 16.1 H, Lymph # (Auto) 2.3, Caldwell # (Auto) 0.8, Eos # (Auto) 0.1, Baso # (Auto) 0.1, Total Counted 100, Neutrophils % (Manual) 81 H, Lymphocytes % (Manual) 17, Monocytes % (Manual) 2, Platelet Estimate Normal, RBC Morphology Normal I & O for Last 24 hours: Intake & Output 10/18/22 10/19/22 10/20/22 10/21/22 11:59 11:59 11:59 11:59 Output Total 600 / 600 Balance -600 / -600 Weight 197 lb 15.99 oz Microbiology Reports for the Last 24 Hours: Microbiology 10/19/22 15:55 Urine,Clean Catch Urine Culture - Preliminary Gram Negative Rods 10/17/22 16:45 Urine,Clean Catch Urine Culture - Final NO GROWTH AFTER 48 HOURS Constitutional Constitutional: no acute distress *Routine HEENT Exam Head: Present normocephalic Eye: Absent conjunctival icterus or scleral injection ENT: Present mucous membranes moist *Routine Neck Exam Neck: Present supple *Routine Respiratory Exam Respiratory: Present CTA bilaterally *Routine Cardiovascular Exam Cardiovascular: Present RRR *Routine Abdominal Exam Abdominal: Present soft; Absent tenderness or distended *Routine Rectal Exam Patient deferred: visual exam and digital exam *Routine Exam Patient deferred: external exam Comments: Fundus firm below umbilicus *Routine Extremities Exam Extremities: Present edema *Routine Neurological Exam Neurological: Present alert and oriented X3 Routine Psychiatric Exam Psychiatric: Present normal affect; Absent depressed Results Data Completed and Pending Labs on day of discharge: Labs from last 24 hours 10/19/22 10/19/22 10/17/22 16:00 15:55 17:00 WBC 19.4 H RBC 3.28 L Hgb 9.3 L Hct 28.2 L MCV 85.9 MCH 28.3 MCHC 33.0 RDW 14.4 Plt Count 342 MPV 8.3 Neut % (Auto) 83.1 H Lymph % (Auto) 11.7 Caldwell % (Auto) 4.3 Eos % (Auto) 0.5 Baso % (Auto) 0.4 Neut # (Auto) 16.1 H Lymph # (Auto) 2.3 Caldwell # (Auto) 0.8 Eos # (Auto) 0.1 Baso # (Auto) 0.1
== END 2022-10-20 15:05 | disposition home or self-care (01) | DRG 806 ==
PROVIDERS: Admitting Provider Obstetrics & Gynecology; PCP Nurse Practitioner Family; Visit Provider Obstetrics & Gynecology
DX: O69.81X0 Labor and delivery complicated by cord around neck, without compression, not applicable or unspecified (principal); O72.1 Other immediate postpartum hemorrhage; Z37.0 Single live birth; Z3A.39 39 weeks gestation of pregnancy; O70.1 Second degree perineal laceration during delivery; O99.345 Other mental disorders complicating the puerperium; F53.0 Postpartum depression
CPT/HCPCS: 59409; 36415; 59025; 80305; 81001; 85007; 85025; 86850; 87086; 87088; 87186; 94761; C1758; C9803; G0283; J0595; J0696; J1756; J2405; U0003; U0005

== ENCOUNTER 2023-05-15 11:52 | Emergency (ER) | payer OTHER, SELFPAY ==
[2023-05-15 11:53] VITALS: BP 125/88; PULSE 85; RESP 16; TEMP 36.8; O2SAT 100; BMI 28.1
--- NOTE | 2023-05-15 12:11 | HMH.EDGENADL ---
Discharge Plan Disposition Patient Disposition: Home, Self-Care Chief Complaint: Recheck/Abnormal Lab/Rx Prescriptions Prescriptions: No Action prenat.vits,ryan,zhn-arne-pqlqm Tablet 1 tab PO DAILY sertraline 50 mg tablet See Rx Instructions .ROUTE .COMPLEX Qty: 30 6RF Dose Instruction: TAKE 1/2 TABLET BY MOUTH DAILY Rx Instructions: TAKE 1/2 TABLET BY MOUTH DAILY pantoprazole [Protonix] 40 mg tablet,delayed release (DR/EC) 40 mg PO DAILY Referrals Follow up/Referrals: Lorena Herbert APRN [Primary Care Provider] - See instructions Activity Restrictions/Add. Instructions Additional Instructions/Restrictions: Call your family doctor to establish care for this visit to the emergency department and schedule follow-up within 48 hours to ensure improvement. If you have any worsening of your condition or any other concerning signs or symptoms, return to the emergency department or your primary care doctor for further evaluation. Clinical Impressions Clinical Impression: Employee exposure to body fluids Discharge ED Provider: Sergo Nguyen General Adult HPI General Chief complaint: Recheck/Abnormal Lab/Rx Stated complaint: [id number] blood splatter on face Time Seen by Provider: 05/15/23 12:03 Mode of Arrival: Ambulatory Source of Information: Patient Limitations: No Limitations Description of Symptoms (Recalled from ER Triage Doc. by RN): pt here for blood exposure. Blood splattered on face from a syringe while doing a vbg. Pt reports blood was splattered on her face, does not think it went in her eyes. Pt has wiped down her face and changed clothes. History of Present Illness HPI narrative: Otherwise healthy 28-year-old female presenting with low risk exposure. Patient was drawing labs from patient in the emergency department. Had blood splashed onto her face. Did not sustain any trauma and does not think any blood got into her eyes or mouth, but not sure. Reported to concreting supervisor, was instructed to come to the ED for blood draw. Related Data Home Medications Medication Instructions Recorded Confirmed prenat.vits,ryan,jen-remw-qqidt 1 tab PO DAILY Supplement 03/07/22 03/20/23 pantoprazole 40 mg tablet,delayed 40 mg PO DAILY acid reflux 10/18/22 03/20/23 release (Protonix) Previous Rx's Medication Instructions Recorded sertraline 50 mg tablet See Rx Instructions .Route 12/26/22 .COMPLEX #30 tabs Allergies Allergy/AdvReac Type Severity Reaction Status Date / Time Sulfa (Sulfonamide Allergy Verified 03/20/23 13:08 Antibiotics) [facility] Disclaimer: The information contained in this section may have been updated after the patient was seen, as this information can be updated by other users. Medical History (Updated 05/15/23 @ 12:14 by Sergo Nguyen MD) Leukocytosis, unspecified depression hemorrhage with 39 completed weeks gestation Surgical History History of colonoscopy History of tonsillectomy Family History Other Anemia Cancer Coronary artery disease Heart attack Hyperlipidemia Hypertension Thyroid disorder Social History Smoking Status: Never smoker alcohol intake: never substance use type: denies use current occupational status: employed Travel in the last 8 weeks: None ROS Obtained: Yes All systems reviewed & no additional complaints except as documented Physical Exam General General appearance: alert and in no apparent distress Respiratory Respiratory exam: Absent respiratory distress Cardiovascular Cardiovascular exam: Present regular rate and normal rhythm Neurological Exam Neurological exam: Present alert and oriented X3 Medical Decision Making Medical Records Medical records reviewed: Yes I reviewed the patient
[2023-05-15 12:31] VITALS: O2SAT 98
[2023-05-15 12:33] VITALS: BP 125/87; PULSE 80; RESP 17; TEMP 36.8; O2SAT 99
[2023-05-15 13:08] LABS: Alanine Aminotransferase 24 U/L (12-78); Albumin Level 4.3 g/dl (3.5-5.0); Alkaline Phosphatase 81 U/L (38-126); Aspartate Amino Transferase 25 U/L (14-36); Basophils % 0.7 % (0.1-2.0); Bilirubin,Direct 0.2 mg/dl (0.0-0.4); Bilirubin,Total 0.2 mg/dl (0.2-1.3); Eosinophils # 0.1 K/mm3 (0.0-0.4); Eosinophils % 2.2 % (0.1-12.0); Hemoglobin 13.7 g/dL (12.2-16.2); Lymphocytes # 1.6 K/mm3 (0.7-4.5); Lymphocytes % 32.3 % (10-50); Mean Corpuscular Hemoglobin 26.1 pg (27.0-31.2); Mean Corpuscular Volume 84.1 fl (81-99); Mean Platelet Volume 7.7 fl (7.4-10.4); Monocytes # 0.2 K/mm3 (0.1-1.0); Monocytes % 4.5 % (1.7-9.3); Neutrophils % 60.2 % (37.0-80.0); Platelet Count 299 K/mm3 (142-424); Red Blood Count 5.23 M/mm3 (4.20-5.40); Red Cell Distribution Width 14.1 % (11.5-17.5); Total Protein,Serum 7.4 g/dl (6.3-8.2)
[2023-05-15 13:17] LABS: Activated Partial Thrombo Time 29.3 seconds (22.8-30.6); INR 1.02 (0.9-1.1)
[2023-05-20 12:52] LABS: HIV Screen 4th Generation wRfx Non Reactive; Hepatitis B Surface Antigen Negative
[2023-05-20 12:53] LABS: Hepatitis C Antibody <0.1
[2023-05-20 12:54] LABS: Hepatitis B Surf Ab Quant 25.3
== END 2023-05-15 12:58 | disposition home or self-care (01) ==
PROVIDERS: Emergency Provider Emergency Medicine; PCP Nurse Practitioner Family
DX: Z77.21 Contact with and (suspected) exposure to potentially hazardous body fluids (principal); Y99.0 Civilian activity done for income or pay
CPT/HCPCS: 80076; 85025; 85610; 85730; 86703; 86706; 87340; 87380; 99285; G0432

== ENCOUNTER 2023-09-03 08:08 | Emergency (ER) | payer OTHER, SELFPAY ==
[2023-09-03 08:20] VITALS: BP 127/80; PULSE 98; RESP 18; TEMP 37.2; O2SAT 97; BMI 28.0
--- NOTE | 2023-09-03 08:30 | EXP.UTC ---
Discharge Plan Disposition Patient Disposition: Home, Self-Care Condition: Good Prescriptions Prescriptions: New amoxicillin 875 mg tablet 875 mg PO BID Qty: 20 0RF No Action pantoprazole [Protonix] 40 mg tablet,delayed release (DR/EC) 40 mg PO DAILY sertraline 50 mg tablet 50 mg PO DAILY Rx Instructions: TAKE 1/2 TABLET BY MOUTH DAILY Referrals Follow up/Referrals: Lorena Herbert APRN [Primary Care Provider] - See instructions Activity Restrictions/Add. Instructions Additional Instructions/Restrictions: *Monitor Temp, Over the counter Motrin or Tylenol as directed/as needed Tylenol every 4 hours and Motrin every 6 hours (as long as your family doctor has told you that you can take it) for fever or pain. and straight to ER if unable to lower temp less than 101.0 after medication given *Warm salt water gargles may help to soothe the throat *Throat Lozenges? *Warm fluids like tea with honey may help to soothe the throat? *Sleep elevated *Humidifier/Vaporizer Take medication as prescribed Follow up IMMEDIATELY for new or worsening symptoms or no Noticeable improvement over the next 48-72 hours. 911 for difficulty breathing or swallowing Clinical Impressions Clinical Impression: Otitis media Qualifiers: Otitis media type: unspecified Laterality: right Qualified Code(s): H66.91 - Otitis media, unspecified, right ear Instructions Patient Instructions: Middle Ear Infection, Ear Infections (Alternative Therapy) Discharge ED Provider: Virginia Whiteside [facility] General Stated complaint: st right ear pain Mode of Arrival: Ambulatory Source of Information: Patient Limitations: No Limitations Time Seen by Provider: 09/03/23 08:30 Description of Symptoms (Recalled from Triage Doc. by RN): PATIENT C/O RIGHT EAR PAIN FOR A WHILE AND SORE THROAT SINCE YESTERDAY HEENT Symptoms (Recalled from RN notes): Yes Resp Symptoms (Recalled from RN notes): No Skin Symptoms (Recalled from RN notes): No MS Symptoms (Recalled from RN notes): No Functional Status (Recalled from RN notes): WNL History of Present Illness Provider Complaint: Patient states that she has been having sore throat and pain in her right ear that has got worse since yesterday States that today she was still having sore throat and ear pain so she came in to get checked Related Data Home Medications Medication Instructions Recorded Confirmed pantoprazole 40 mg tablet,delayed 40 mg PO DAILY acid reflux 10/18/22 09/03/23 release (Protonix) sertraline 50 mg tablet 50 mg PO DAILY 09/03/23 09/03/23 Previous Rx's Medication Instructions Recorded amoxicillin 875 mg tablet 875 mg PO BID #20 tabs 09/03/23 Allergies Allergy/AdvReac Type Severity Reaction Status Date / Time Sulfa (Sulfonamide Allergy Verified 03/20/23 13:08 Antibiotics) Worker's Comp Is this a Worker's Comp case?: No [facility] Disclaimer: The information contained in this section may have been updated after the patient was seen, as this information can be updated by other users. Medical History (Updated 09/03/23 @ 08:48 by Virginia Whiteside APRN) Leukocytosis, unspecified depression hemorrhage with 39 completed weeks gestation Surgical History History of colonoscopy History of tonsillectomy Family History Other Anemia Cancer Coronary artery disease Heart attack Hyperlipidemia Hypertension Thyroid disorder Social History Smoking Status: Never smoker alcohol intake: never substance use type: denies use current occupational status: employed Travel in the last 8 weeks: None ROS Obtained: Yes All systems reviewed & no additional complaints except as documented and Yes Systems reviewed as appropriate & no additional complaints except as documented Constitutional Constitutional: Reports system reviewed and no additional complaints, except as documented and Reports as per HPI ENT Ears, Nose, Mouth, and Throat: Reports system reviewed and no additional complaints, except as documented, Reports as per HPI, Reports otalgia and Reports sore throat Cardiovascular Cardiovascular: Reports system reviewed and no additional complaints, except as documented and Reports as per HPI Respiratory Respiratory: Reports system reviewed and no additional complaints, except as documented and Reports as per HPI Gastrointestinal Gastrointestingal: Reports system reviewed and no additional complaints, except as documented and as per HPI Physical Exam General General appearance: alert and in no apparent distress ENT ENT exam: Present mucous membranes moist Expanded ENT Exam TM/Canal exam: Right TM: erythema, loss of landmarks and cerumen impaction Throat exam: Present tonsillar erythema Respiratory Respiratory exam: Present normal lung sounds bilaterally; Absent respiratory distress or wheezes Cardiovascular Cardiovascular exam: Present regular rate, normal rhythm and normal heart sounds Neurological Exam Neurological exam: Present alert, oriented X3 and normal gait Medical Decision Making Primo Inquiry Pt receiving controlled substance: No Primo was queried for this patient: No Vital Signs: 09/03/23 08:20 Temperature 99.0 F Temperature Source Oral Pulse Rate [Left Brachial] 98 H Respiratory Rate 18 Blood Pressure [Left Arm] 127/80 Blood Pressure Mean [Left Arm] 95 Blood Pressure Source [Left Arm] Automatic Cuff Blood Pressure Position [Left Arm] Sitting 02 Sat by Pulse Oximetry 97 Oxygen Delivery Method Room Air Lab Data Lab results reviewed: Yes I reviewed the patient's lab results.
[2023-09-03 08:43] LABS: UTC Strep Screen (Rapid) Negative (Negative)
[2023-09-03 08:57] VITALS: BP 127/80; PULSE 98; RESP 18; TEMP 37.2; O2SAT 97
== END 2023-09-03 09:00 | disposition home or self-care (01) ==
PROVIDERS: Emergency Provider Nurse Practitioner; PCP Nurse Practitioner Family
DX: H66.91 Otitis media, unspecified, right ear (principal); R07.0 Pain in throat
CPT/HCPCS: 87880; 99212; 99214; G0463

== ENCOUNTER 2024-05-07 08:14 | Emergency (ER) | payer OTHER, SELFPAY ==
[2024-05-07 08:25] VITALS: BP 129/81; PULSE 88; RESP 20; TEMP 37.1; O2SAT 98; BMI 25.8
--- NOTE | 2024-05-07 08:49 | ED_ITS ---
Discharge Plan Disposition Patient Disposition: Home, Self-Care Condition: Good Prescriptions Prescriptions: New azithromycin [Zithromax Z-Steve] 250 mg tablet See Rx Instructions .ROUTE .COMPLEX 5 Days Qty: 6 0RF Rx Instructions: For 250 mg dose pack: take 500 mg today (day 1), then 250 mg for 4 days (days 2-5) methylprednisolone [Medrol (Steve)] 4 mg tablets,dose pack See Rx Instructions .Route .COMPLEX 6 Days Qty: 21 0RF Rx Instructions: taper pack; uxkzdklcvvphmyp-idvkzjkor-LV [Bromfed DM] 2-30-10 mg/5 mL syrup 10 ml PO Q6H PRN (Reason: cold symptoms) Qty: 200 0RF Referrals Follow up/Referrals: Lorena Herbert APRN [Primary Care Provider] - See instructions Activity Restrictions/Add. Instructions Additional Instructions/Restrictions: * Start antibiotic today. Be sure to complete entire prescription even if feeling better * Monitor temp. Tylenol every 4 hours as needed and / or ibuprofen every 6 hours as needed ( As long as your primary care physician has told you that it ok to take both. For fever/aches/pains ER if no less than 101 despite Tylenol or Motrin * Humidifier/vaporizer or hot steamy shower * *Bromfed may cause drowsiness. Know how it effects you (your child) before driving, caring for small child, or sending your child to school. Not other antihistamines/allergy medications while taking bromfed *Start steroid today. Helps with inflammation therefore, cough and wheezing. Follow directions on the package. Reviewed side effects. Patient reports taking them before. Follow up IMMEDIATELY for new or worsening of symptoms OR no noticeable improvement over the next 48-72 hours. 911 immediately for any life threatening symptoms such as chest pain or difficulty breathing Clinical Impressions Clinical Impression: Bronchitis Instructions Patient Instructions: Acute Bronchitis, Cough Print Language Print Language: Mongolian Discharge ED Provider: Virginia Whiteside [facility] General Stated complaint: persistent cough Mode of Arrival: Ambulatory Source of Information: Patient Limitations: No Limitations Time Seen by Provider: 05/07/24 08:49 Description of Symptoms (Recalled from Triage Doc. by RN): PATIENT C/O COUGH X 2 WEEKS HEENT Symptoms (Recalled from RN notes): No Resp Symptoms (Recalled from RN notes): Yes Skin Symptoms (Recalled from RN notes): No MS Symptoms (Recalled from RN notes): No Functional Status (Recalled from RN notes): WNL History of Present Illness Provider Complaint: Patient states that she has been having cough for a couple weeks and she has been taking OTC cough medications but nothing has helped and feels congested in her chest like she may have bronchitis or something and today the cough is now productive Related Data Previous Rx's ?Medication ?Instructions ?Recorded azithromycin 250 mg tablet See Rx Instructions PO .COMPLEX 5 05/07/24 (Zithromax Z-Steve) days #6 tabs tflirgkieqfackk-gktykqxvslbrchx-AU 10 ml PO Q6H PRN cold symptoms 05/07/24 2 mg-30 mg-10 mg/5 mL oral syrup #200 mL (Bromfed DM) methylprednisolone 4 mg tablets in See Rx Instructions .Route 05/07/24 a dose pack (Medrol (Steve)) .COMPLEX 6 days #21 tabs Allergies Allergy/AdvReac Type Severity Reaction Status Date / Time Sulfa (Sulfonamide Allergy Verified 03/20/23 13:08 Antibiotics) Worker's Comp Is this a Worker's Comp case?: No [facility] Disclaimer: The information contained in this section may have been updated after the patient was seen, as this information can be updated by other users. Medical History (Updated 05/07/24 @ 08:52 by Virginia Whiteside APRN) Leukocytosis, unspecified depression hemorrhage with 39 completed weeks gestation Surgical History History of colonoscopy History of tonsillectomy Family History Other Anemia Cancer Coronary artery disease Heart attack Hyperlipidemia Hypertension Thyroid disorder Social History Smoking Status: Never smoker alcohol intake: never substance use type: denies use current occupational status: employed Travel in the last 8 weeks: None ROS Obtained: Yes All systems reviewed & no additional complaints except as documented and Yes Systems reviewed as appropriate & no additional complaints except as documented Constitutional Constitutional: Reports system reviewed and no additional complaints, except as documented and Reports as per HPI ENT Ears, Nose, Mouth, and Throat: Reports system reviewed and no additional complaints, except as documented, Reports as per HPI, Reports nasal congestion and Reports sinus pressure Cardiovascular Cardiovascular: Reports system reviewed and no additional complaints, except as documented and Reports as per HPI Respiratory Respiratory: Reports system reviewed and no additional complaints, except as documented, Reports as per HPI, Reports chest congestion and Reports cough Gastrointestinal Gastrointestingal: Reports system reviewed and no additional complaints, except as documented and as per HPI Physical Exam General General appearance: alert and in no apparent distress ENT ENT exam: Present mucous membranes moist Expanded ENT Exam Nose exam: Absent sinus tenderness Throat exam: Present other (PND noted) Respiratory Respiratory exam: Present normal lung sounds bilaterally; Absent respiratory distress or wheezes Cardiovascular Cardiovascular exam: Present regular rate, normal rhythm and normal heart sounds Abdominal Exam Abdominal exam: Present soft and normal bowel sounds; Absent distention or tenderness Neurological Exam Neurological exam: Present alert, oriented X3 and normal gait Medical Decision Making Primo Inquiry Pt receiving controlled substance: No Primo was queried for this patient: No Vital Signs: 05/07/24 08:25 Temperature 98.7 F Temperature Source Oral Pulse Rate [Left Brachial] 88 Respiratory Rate 20 Blood Pressure [Left Arm] 129/81 Blood Pressure Mean [Left Arm] 97 Blood Pressure Source [Left Arm] Automatic Cuff Blood Pressure Position [Left Arm] Sitting 02 Sat by Pulse Oximetry 98 Oxygen Delivery Method Room Air
[2024-05-07 08:58] VITALS: BP 129/81; PULSE 88; RESP 20; TEMP 37.1; O2SAT 98
== END 2024-05-07 09:01 | disposition home or self-care (01) ==
PROVIDERS: Emergency Provider Nurse Practitioner; PCP Nurse Practitioner Family
DX: J20.9 Acute bronchitis, unspecified (principal); R09.89 Other specified symptoms and signs involving the circulatory and respiratory systems; R05.9 Cough, unspecified
CPT/HCPCS: 99212; 99214; G0463

== ENCOUNTER 2024-09-30 16:07 | Outpatient (CLI) | payer OTHER, SELFPAY ==
[2024-09-30 16:12] LABS: MANUAL DIFFERENTIAL MANUAL DIFFERENTIAL (MANUAL DIFF)
[2024-09-30 16:24] LABS: Basophils # 0.1 K/mm3 (0-0.2); Basophils % 0.8 % (0.1-2.0); Eosinophils # 0.1 K/mm3 (0.0-0.4); Eosinophils % 0.9 % (0.1-12.0); Hematocrit 41.2 % (37.0-47.0); Hemoglobin 13.7 g/dL (12.2-16.2); Lymphocytes # 1.4 K/mm3 (0.7-4.5); Lymphocytes % 17.7 % (10-50); Mean Corpuscular HGB Conc 33.3 g/dL (31.8-35.4); Mean Corpuscular Hemoglobin 29.1 pg (27.0-31.2); Mean Corpuscular Volume 87.5 fl (81-99); Mean Platelet Volume 8.8 fl (7.4-10.4); Monocytes # 0.6 K/mm3 (0.1-1.0); Monocytes % 7.2 % (1.7-9.3); Neutrophils # 5.6 K/mm3 (1.8-7.8); Neutrophils % 73.3 % (37.0-80.0); Platelet Count 252 K/mm3 (142-424); Red Blood Count 4.71 M/mm3 (4.20-5.40); Red Cell Distribution Width 12.6 % (11.5-17.5); White Blood Count 7.6 K/mm3 (4.8-10.8)
[2024-09-30 16:35] LABS: Lymphocytes % 15 % (10-50); Monocytes % 4 % (2-9); Neutrophils % 81 % (42-76); Platelet Estimate Normal; RBC Morphology Normal; Total Cells Counted 100
[2024-09-30 16:43] LABS: HCG Qualitative, Serum Negative (Negative)
[2024-09-30 16:45] LABS: Alanine Aminotransferase 21 U/L (12-78); Albumin Level 4.8 g/dl (3.5-5.0); Albumin/Globulin Ratio 2.2 (1.1-1.8); Alkaline Phosphatase 65 U/L (38-126); Anion Gap 11.1 mEq/L (5-15); Aspartate Amino Transferase 24 U/L (14-36); Bilirubin,Total 0.3 mg/dl (0.2-1.3); Blood Urea Nitrogen 12 mg/dl (7-17); Calcium 9.2 mg/dl (8.4-10.2); Carbon Dioxide 25 mmol/L (22.0-30.0); Chloride 102 mmol/L (98-107); Chol/HDL Ratio 2.9 (1-3.5); Cholesterol 171 mg/dl (140-200); Estimated Glomerular Filt Rate 74 ml/min (>60); GFR (African American) 90 ML/MIN (>60); Globulin 2.2 g/dL (1.3-3.2); Glucose 92 mg/dl (74-100); HDL Cholesterol 60 mg/dl (40-60); Potassium 4.1 mmoL/L (3.5-5.1); Sodium 134 mmol/L (136-145); Triglycerides 139 mg/dl (30-150); VLDL Cholesterol 28 mg/dL (0-40)
[2024-09-30 16:56] LABS: Direct LDL Cholesterol 76.39 mg/dL (100-129)
[2024-09-30 17:01] LABS: Free T4 (Free Thyroxine) 1.18 ng/dl (0.78-2.19)
[2024-09-30 17:33] LABS: Magnesium 1.8 mg/dl (1.6-2.3)
== END 2024-09-30 23:59 | disposition home or self-care (01) ==
LOC: LAB 16:08
PROVIDERS: Visit Provider Physician Assistant
DX: R00.0 Tachycardia, unspecified (principal)
CPT/HCPCS: 36415; 80053; 80061; 83735; 84439; 84443; 84703; 85007; 85014; 85018; 85048; 85049

== ENCOUNTER 2025-04-14 09:47 | Outpatient (CLI) | payer OTHER, SELFPAY ==
[2025-04-14 13:46] LABS: Hematocrit 42.5 % (37.0-47.0); Hemoglobin 13.6 g/dL (12.2-16.2); Immature Granulocytes % 0.4 %; Mean Corpuscular HGB Conc 32.0 g/dL (31.8-35.4); Mean Corpuscular Hemoglobin 28.4 pg (27.0-31.2); Mean Corpuscular Volume 88.7 fl (81-99); Nucleated Red Blood Cells % 0 %; Platelet Count 277 K/mm3 (142-424); Red Blood Count 4.79 M/mm3 (4.20-5.40); Red Cell Distribution Width-SD 41.5 fL; White Blood Count 4.7 K/mm3 (4.8-10.8)
[2025-04-14 14:49] LABS: Albumin Level 4.6 g/dl (3.5-5.0)
[2025-04-14 14:50] LABS: Chloride 103 mmol/L (98-107); Potassium 4.5 mmoL/L (3.5-5.1); Sodium 138 mmol/L (136-145)
[2025-04-14 14:52] LABS: Alanine Aminotransferase 17 U/L (12-78); Aspartate Amino Transferase 25 U/L (14-36); Blood Urea Nitrogen 9 mg/dl (7-17); Creatinine,Serum 0.70 mg/dl (0.52-1.04); Estimated Glomerular Filt Rate 98 ml/min (>60); GFR (African American) 119 ML/MIN (>60)
[2025-04-14 14:53] LABS: Albumin/Globulin Ratio 1.8 (1.1-1.8); Alkaline Phosphatase 56 U/L (38-126); Anion Gap 12.5 mEq/L (5-15); Bilirubin,Total 0.5 mg/dl (0.2-1.3); Calcium 8.8 mg/dl (8.4-10.2); Carbon Dioxide 27 mmol/L (22.0-30.0); Globulin 2.5 g/dL (1.3-3.2); Glucose 78 mg/dl (74-100); Iron 126 ug/dL (37-170); Total Protein,Serum 7.1 g/dl (6.3-8.2)
[2025-04-14 15:02] LABS: Total Iron Binding Capacity 307 ug/dL (265-497)
[2025-04-14 15:16] LABS: 25-OH Vitamin D, Total 22.0 ng/mL (30-100)
[2025-04-14 15:28] LABS: Ferritin 15.0 ng/ml (6.24-137)
[2025-04-14 15:47] LABS: Vitamin B12 559 pg/mL (239-931)
--- OUTSIDE RECORDS SUMMARY | 2025-04-16 09:49 | XMS_ITS | Clinical Summary ---
[facility] Address [address] [place] [address] Care Team Providers Care Scalloper Name Role Phone Lorena Mcconnell APRN Primary Care Provider [phone] Allergies No known active allergies Medications Etonogestrel-Eth inyl Estradiol (NUVARING VA) Insert into the vagina. Active Esomeprazole Magnesium (NEXIUM PO) Take by mouth. Act danielle Sod Picosulfate-Mag Ox-Cit Acd 10-3.5-12 MG-GM -GM/160ML solutionIndicati ons:Screen for colon cancer Take 160 mL by mouth Take As Directed for 2 doses. 320 mL 2 Active ondansetron (Zofran) 4 MG tabletIndication s:Nausea and vomiting, unspecified vomiting type Take 1 tablet by mouth Every 6 (Six) Hours As Needed (FOR COLONOSCOPY PREP). 6 tablet 2 Active Social History Tobacco Use Types Packs/Day Years Used Date Smoking Tobacco: Never Abuse Screen Answer Date Recorded Unsafe at Home or Work/School Not on file Feels Threatened by Someone? Not on file 04/2023 Does Anyone Keep You from Co ntacting Others or Doint Things Outside the Home? Not on file 06/09/2023 Physical Sign of Abuse Present Not on file 1 Housing Stability Answer Date Recorded Current Living Arrangements Not on file 04/2023 Potentially Unsafe Housing Conditions Not on delonte e 06/09/2023 Family and Community Support Answer Teja e Recorded Help with Day-to-Day Activities Not on file 06/09/2023 Lonely or Isolated Not on file 06/09/2023 Employment Answer Date Recorded Do you want help finding or keeping work or a jazmin b? Not on file 06/09/2023 Disabilities Answer Date Recorded Concentrating, Remembering, or Making Decisions Difficulty Not on file 06/09/2023 Doing Errands Independently Difficulty Not on fi le 06/09/2023 Education Answer Date Recorded Help with school or training? Not on file Preferred Language Not on file 06/09/2023 Comments No Sex and Gender Information Value Date Recorded Sex Assigned at Not on file Legal Sex Female 10:56 AM EDT Gender Identity Not on file Sexual Orientation Not on file Last Filed Vital Signs Vital Sign Reading Time Taken Comments Blood Pressure - - Pulse 87 06/05/2017 6:28 PM EDT Temperature 36.8 C (98.3 F) 06/05/2017 6:28 PM EDT Respiratory Rate 15 06/05/2017 6:28 PM EDT Oxygen Saturation 100% 06/05/2017 6:28 PM EDT Inhaled Oxygen Concentration - - Weight 60.4 kg (133 lb 3.2 oz) 06/05/2017 6:28 P M EDT Height 162.6 cm (5' 4 ) 06/05/2017 6:28 PM EDT Body Mass Index 22.86 06/05/2017 6:28 PM EDT Plan of Treatment Health Maintenance Due Date Last Done Comments Annual Gynecologic Pelvic an d Breast Exam 1995 TDAP/TD VACCINES (1 - Tdap) 2014 ANNUAL PHYSICAL 06/05/2017 HEPATITIS C SCREENING 06/05/2017 COVID-19 Vaccine ( - 2023-2 5 season) 2024 INFLUENZA VACCINE 06/02/2025 COLONOSCOPY 01/09/2027 01/09/2022, 01/14/2017 COLORECTAL CANCER SCREENING 01/09/2027 Pneumococcal Vaccine 0-49 Aged Out No longer eligible based on patient's age to complete this topic Procedures Procedure Name Priority Date/Time Associated Diagnosis Comments SCANNED - COLONOSCOPY 01/09/2022 from Last 3 Months or Most Recently Relevant to Health Maintenance Results * SCANNED - COLONOSCOPY (01/09/2022) Blake Alston MD CHART REVIEW TABS Final Res ult from Last 3 Months or Most Recently Relevant to Health Maintenance [facility] [employer] Care Teams Scalloper Relationship Specialty Start Date End Date Lorena Mcconnell APRN [id number] [facility] [address] [place] [address] PCP - General Nurse Practitioner 08/08/21
== END 2025-04-14 23:59 | disposition home or self-care (01) ==
LOC: LAB.DROPOF 04-16 09:47
PROVIDERS: PCP Nurse Practitioner Family; Visit Provider Nurse Practitioner Family
DX: M54.50 Low back pain, unspecified (principal); R39.9 Unspecified symptoms and signs involving the genitourinary system; R53.83 Other fatigue; R10.9 Unspecified abdominal pain; R41.3 Other amnesia
CPT/HCPCS: 80053; 82306; 82607; 82728; 83540; 83550; 85025; 87086; 87088; 87186